=== PATIENT | female | born 1940 | race Caucasian/White ===

== ENCOUNTER 2023-03-09 18:14 | Inpatient (IN) | payer MEDICARE ==
[~2023-03-09] VITALS: Ht 167.6 cm; Wt 61.8 kg
[~2023-03-09 18:14] MED LIST: AMLO5 PO; CIME400 PO; CIPR500 PO; DOCU100 PO; GABA300 PO; IBUP400 PO; LORA1 PO; METCAR500 PO; METO25ER PO; METPRE4DP PO; Norco 10-325 T1 EACH PO; ONDA4 PO; ONDA4ODT MM; OXYACE5T PO; Omeprazole20 M1 PO; PROM25 PO
[2023-03-09 18:37] LABS: BASOPHILS ABSOLUTE AUTO 0.11 K/mm3 (0.00-0.23); BASOPHILS PERCENT AUTO 1 % (0-2); EOSINOPHILS ABSOLUTE AUTO 0.07 K/mm3 (0.00-0.68); EOSINOPHILS PERCENT AUTO 0 % (0-6); Hematocrit 46.6 % (33.0-51.0); Hemoglobin 16.2 g/dL (11.5-16.0); IMMATURE GRAN ABSOLUTE AUTO 0.08 K/mm3 (0.00-0.10); IMMATURE GRAN PERCENT AUTO 1 % (0-1); LYMPHOCYTES ABSOLUTE AUTO 1.19 K/mm3 (0.84-5.20); LYMPHOCYTES PERCENT AUTO 7 % (21-46); MONOCYTES ABSOLUTE AUTO 1.23 K/mm3 (0.16-1.47); MONOCYTES PERCENT AUTO 8 % (4-13); Mean Corpuscular HGB 29.3 pg (26.0-34.0); Mean Corpuscular HGB Conc 34.8 g/dL (31.5-36.5); Mean Corpuscular Volume 84 fL (80-100); Mean Platelet Volume 9.8 fL (9.1-12.4); NEUTROPHILS ABSOLUTE AUTO 13.73 K/mm3 (1.96-9.15); NEUTROPHILS PERCENT AUTO 84 % (41-73); Platelet Count 334 K/mm3 (150-400); RDW Coefficient Variation 13.4 % (11.7-14.2); Red Blood Cell Count 5.52 M/mm3 (3.80-5.20); White Blood Cell Count 16.41 K/mm3 (4.00-11.30)
[2023-03-09 19:09] LABS: Albumin, Blood 3.3 g/dL (3.4-5.0); Albumin/Globulin Ratio 0.7 (0.8-1.8); Bilirubin, Total 0.8 mg/dL (0.1-1.0); Calcium, Blood 12.1 mg/dL (8.5-10.1); Globulin, Blood 4.9 g/dL (2.2-4.0); Potassium, Blood 4.3 mmol/L (3.5-5.5); Total Protein, Blood 8.2 g/dL (6.4-8.2)
[2023-03-09 19:13] LABS: Magnesium, Blood 1.6 mg/dL (1.6-2.4)
[2023-03-09 19:15] LABS: Thyroid Stimulating Hormone 3.08 uIU/mL (0.360-4.800)
[2023-03-09 20:24] LABS: Influenza A, PCR NEGATIVE (NEGATIVE); Influenza B, PCR NEGATIVE (NEGATIVE); Resp Syncytial Virus, PCR NEGATIVE (NEGATIVE); SARS-Cov-2 (COVID-19) PCR, MMC NEGATIVE (NEGATIVE)
[2023-03-10] VITALS (8 sets, daily range): BP systolic 121–157; BP diastolic 62–95
[2023-03-10 05:04] LABS: BASOPHILS ABSOLUTE AUTO 0.13 K/mm3 (0.00-0.23); BASOPHILS PERCENT AUTO 1 % (0-2); Hematocrit 41.3 % (33.0-51.0); Hemoglobin 15.1 g/dL (11.5-16.0); LYMPHOCYTES ABSOLUTE AUTO 1.38 K/mm3 (0.84-5.20); LYMPHOCYTES PERCENT AUTO 9 % (21-46); MONOCYTES ABSOLUTE AUTO 1.14 K/mm3 (0.16-1.47); MONOCYTES PERCENT AUTO 8 % (4-13); Mean Corpuscular HGB 29.9 pg (26.0-34.0); Mean Corpuscular HGB Conc 36.6 g/dL (31.5-36.5); Mean Corpuscular Volume 82 fL (80-100); Mean Platelet Volume 10.2 fL (9.1-12.4); Platelet Count 277 K/mm3 (150-400); RDW Coefficient Variation 13.2 % (11.7-14.2); RDW Standard Deviation 39.1 fL (35.1-46.3); Red Blood Cell Count 5.05 M/mm3 (3.80-5.20); White Blood Cell Count 15.14 K/mm3 (4.00-11.30)
[2023-03-10 05:09] LABS: EOSINOPHILS PERCENT AUTO 0 % (0-6); IMMATURE GRAN ABSOLUTE AUTO 0.08 K/mm3 (0.00-0.10); IMMATURE GRAN PERCENT AUTO 1 % (0-1); NEUTROPHILS ABSOLUTE AUTO 12.41 K/mm3 (1.96-9.15); NEUTROPHILS PERCENT AUTO 82 % (41-73)
[2023-03-10 05:16] LABS: Albumin, Blood 2.6 g/dL (3.4-5.0); Albumin/Globulin Ratio 0.6 (0.8-1.8); Bilirubin, Total 0.6 mg/dL (0.1-1.0); Bun/Creatinine Ratio 21.6 (12.0-20.0); Calcium, Blood 10.9 mg/dL (8.5-10.1); Creatinine, Blood 1.02 mg/dL (0.40-1.00); Globulin, Blood 4.2 g/dL (2.2-4.0); Potassium, Blood 3.7 mmol/L (3.5-5.5); Total Protein, Blood 6.8 g/dL (6.4-8.2)
--- NOTE | 2023-03-10 06:43 | NUR ---
SHIFT SUMMARY: PT ADMITTED LAST NIGHT FROM ED. A&OX4. ABLE TO FOLLOW DIRECTIONS AND MAKE NEEDS KNOWN. DENIES ANY NAUSEA, SOB, OR CHEST PAIN/PRESSURE. HR HAS BEEN A-FIB IN 110'S ON DILT GTT AT 15. PT INITIALLY HAVING SOME URINARY RETENTION BUT IS NOW VOIDING CLEAR, YELLOW URINE WITHOUT DIFFICULTY. PUREWICK IN PLACE FOR COMFORT. 5 LPM VIA NC NEEDED TO KEEP O2 SATS > 92%. NPO FOR POSSIBLE PROCEDURE TODAY WITH SWABS TO KEEP MOUTH WARM. NO ACUTE CHANGES NOTED DURING THIS SHIFT. CALL LIGHT IN REACH. BED ALARM ON.
--- NOTE | 2023-03-10 07:57 | NUR ---
ASSUMED CARE: ASSUMED CARE OF PT APPROX 0715. PT A&OX4. ABLE TO MAKE NEEDS KNOWN. HR 120'S, AFIB. SBP 167. PT DENIES CP/PRESSURE. SPO2 >92% ON 5L VIA NC. PT DENIES SOB. PUREWICK IN PLACE. NPO THIS AM. PT ABLE TO USE SWABS TO MOISTEN MOUTH. NO FURTHER NEEDS AT THIS TIME. CALL LIGHT WITHIN REACH.
--- NOTE | 2023-03-10 11:39 | NUR ---
PT UPDATE: CALL PLACED TO MD LOPEZ. MD LOPEZ NOTIFIED OF PT HR 120-130'S WITH DILT DRIP AT 15 AND INCREASED SOB. NOTIFIED THAT O2 DEMANDS INCREASED FROM 5L TO 7-8L VIA NC. MD LOPEZ STATES SHE WILL LOOK INTO IT. NO FURTHER ORDERS AT THIS TIME.
[2023-03-10 12:50] LABS: CPK Creatine Kinase 92 U/L (26-193)
[2023-03-10 12:58] LABS: International Normalized Ratio 1.18; Prothrombin Time Results 12.3 Sec (9.7-11.5)
--- NOTE | 2023-03-10 16:03 | NUR ---
SHIFT SUMMARY: PT A&OX4, ABLE TO MAKE NEEDS KNOWN. SBP 140-160'S. HR MOSTLY 110-120'S IN AFIB. DILT GTT INFUSING AT 15. PT DENIES CP/PRESSURE. PT TITRATED UP TO 8L O2 VIA NC TO MAINTAIN O2 SATS >92%. PT WITH INCREASED SOB ON 5L O2 AND ELEVATED HR WITH TRANSFER FROM BED TO CHAIR. PT MOVED BACK TO BED WITH NURSE SBA ON 8L O2. HR DECREASED AND TACHYPNEA SUBSIDED ONCE BACK IN BED. PT REMAINED ON 8L O2, MD LOPEZ NOTIFIED. HEPARIN STARTED INFUSING AT 18.6 PER EMAR. PUREWICK IN PLACE DRAINING CLEAR YELLOW URINE. NO BM'S THIS SHIFT. [address]CTION IN PL[address]. ABLE TO EAT AND DRINK INDEPENDENTLY. FREQUENTLY REPOSITIONED THROUGHOUT SHIFT. CALL LIGHT WITHIN REACH. NO FURTHER NEEDS AT THIS TIME.
[2023-03-10] MEDS ORDERED: HYDHCL25 PO (17:28)
[2023-03-10] MEDS ORDERED: VENL75ER PO (17:29)
[2023-03-11] VITALS (7 sets, daily range): BP systolic 120–154; BP diastolic 61–105
[2023-03-11 02:41] LABS: Hematocrit 38.4 % (33.0-51.0); Hemoglobin 13.4 g/dL (11.5-16.0); Mean Corpuscular HGB 29.3 pg (26.0-34.0); Mean Corpuscular HGB Conc 34.9 g/dL (31.5-36.5); Mean Corpuscular Volume 84 fL (80-100); Platelet Count 304 K/mm3 (150-400); RDW Coefficient Variation 13.2 % (11.7-14.2); RDW Standard Deviation 40.7 fL (35.1-46.3); Red Blood Cell Count 4.58 M/mm3 (3.80-5.20); White Blood Cell Count 15.23 K/mm3 (4.00-11.30)
[2023-03-11 03:09] LABS: BAND PERCENT MAN 9 % (0-8); BASOPHILS PERCENT MAN 0 % (0-2); EOSINOPHILS PERCENT MAN 0 % (0-6); LYMPHOCYTES PERCENT MAN 4 % (21-46); MONOCYTES ABSOLUTE MAN 1.52 K/mm3 (0.16-1.47); MONOCYTES PERCENT MAN 10 % (4-13); MYELOCYTE ABSOLUTE MAN 0.15 K/mm3 (0.00-0.00); MYELOCYTE PERCENT MAN 1 % (0-0); NEUTROPHILS ABSOLUTE MAN 12.94 K/mm3 (1.96-9.15); SEG NEUTROPHILS PERCENT MAN 76 % (41-73); TOTAL CELLS COUNTED 100
[2023-03-11 03:18] LABS: Albumin, Blood 2.4 g/dL (3.4-5.0); Albumin/Globulin Ratio 0.6 (0.8-1.8); Bilirubin, Total 0.3 mg/dL (0.1-1.0); Bun/Creatinine Ratio 27.5 (12.0-20.0); Calcium, Blood 10.7 mg/dL (8.5-10.1); Creatinine, Blood 1.09 mg/dL (0.40-1.00); Globulin, Blood 4.1 g/dL (2.2-4.0); Potassium, Blood 3.9 mmol/L (3.5-5.5); Total Protein, Blood 6.5 g/dL (6.4-8.2)
--- NOTE | 2023-03-11 04:45 | NUR ---
CARDIZEM GTT OFF SINCE LAST PM AT 2237, HEPARIN GTT AT 18 UNITS, AFIB 70'S TO 90'S, GOOD UO, VSS, PT C/O INSOMNIA, MELATONIN 5MG ORDERED BUT PT STILL RESTLESS AND HAVING DIFFICULTY FALLING BACK TO SLEEP AFTER BEING DISTURBED, DECLINED TYLENOL, REPOSITIONING OR FURTHER MEDICINAL INTERVENTIONS
--- NOTE | 2023-03-11 07:41 | NUR ---
ASSUMPTION OF CARE: ASSUMED CARE OF PT APPROX 0700. PT A&OX4. TALKATIVE IN BED, LISTENING TO MUSIC. HR 110'S, SBP 140. PT DENIES CP/PRESSURE. SPO2 >95% ON 7L O2 VIA NC. PT DENIES SOB. RESPIRATIONS EVEN AND UNLABORED. AFEBRILE. PT RECEIVED BED BATH THIS AM. HEPARIN CURRENTLY INFUSING AT 18 ML/HR PER EMAR. PUREWICK IN PLACE DRAINING YELLOW URINE. [address]CTION IN PLACE. CALL LIGHT WITHIN REACH. NO FURTHER NEEDS AT THIS TIME.
--- NOTE | 2023-03-11 14:40 | NUR ---
PT UPDATE: SPOKE WITH RT MARS. MARS ADVISED THIS SN THAT PT HAD WHEEZES IN THE BILATERAL LUNGS DURING HER EVALUATION. MARS RECOMMENDED DISCUSSING THE INITIATION OF STEROIDS WITH MD. SPOKE WITH MD OZUNA. INFORMED OBI OF PT'S WHEEZES AND RT RECOMMENDATION OF STEROID TREATMENT. OBI STATES THAT SHE WILL PLACE ORDERS FOR ORAL STEROIDS.
--- NOTE | 2023-03-11 17:24 | NUR ---
SHIFT SUMMARY: PT A&OX4 AND EMOTIONAL THIS SHIFT. HR MOISTLY 80-110'S WITH SOME INCREASES TO 130'S. AFIB RHYTHM. SBP 140-150'S. PT DENIES CP/PRESSURE. O2 TITRATED DOWN FROM 7L TO 4L THIS PM. SPO2 >90% ON 4L VIA NC. AFEBRILE. HEPARIN CURRENTLY INFUSING AT 24.8 ML/HR. PUREWICK IN PLACE. [address] IN [address]. MINIMAL FOOD INTAKE THIS SHIFT. PT ABLE TO TRANSFER FROM BED TO CHAIR MULTIPLE TIMES THIS SHIFT WITH SBA. UP TO BSC THIS PM. 1 SMALL BM. ECHO COMPLETED THIS AM. PT TEARFUL AND STATED THAT SHE WAS "WORKED UP" AT TIMES. PT EXPRESSED FRUSTRATION ABOUT HER COMFORT IN BED, RELIEVED WITH MOVE TO RECLINER. PT DECLINED DINNER TRAY, RESTING IN BED CURRENTLY. CALL LIGHT WITHIN REACH. NO FURTHER NEEDS AT THIS TIME.
[2023-03-12] VITALS (11 sets, daily range): BP systolic 118–159; BP diastolic 77–129
[2023-03-12 01:22] LABS: BASOPHILS ABSOLUTE AUTO 0.05 K/mm3 (0.00-0.23); BASOPHILS PERCENT AUTO 0 % (0-2); EOSINOPHILS ABSOLUTE AUTO 0.04 K/mm3 (0.00-0.68); EOSINOPHILS PERCENT AUTO 0 % (0-6); Hemoglobin 14.8 g/dL (11.5-16.0); IMMATURE GRAN ABSOLUTE AUTO 0.17 K/mm3 (0.00-0.10); IMMATURE GRAN PERCENT AUTO 1 % (0-1); LYMPHOCYTES ABSOLUTE AUTO 1.23 K/mm3 (0.84-5.20); LYMPHOCYTES PERCENT AUTO 10 % (21-46); MONOCYTES ABSOLUTE AUTO 0.23 K/mm3 (0.16-1.47); MONOCYTES PERCENT AUTO 2 % (4-13); Mean Corpuscular HGB 29.5 pg (26.0-34.0); Mean Corpuscular HGB Conc 35.2 g/dL (31.5-36.5); Mean Corpuscular Volume 84 fL (80-100); Mean Platelet Volume 9.8 fL (9.1-12.4); NEUTROPHILS ABSOLUTE AUTO 10.77 K/mm3 (1.96-9.15); NEUTROPHILS PERCENT AUTO 86 % (41-73); Platelet Count 320 K/mm3 (150-400); RDW Coefficient Variation 13.4 % (11.7-14.2); RDW Standard Deviation 41.5 fL (35.1-46.3); Red Blood Cell Count 5.01 M/mm3 (3.80-5.20); White Blood Cell Count 12.49 K/mm3 (4.00-11.30)
[2023-03-12 01:38] LABS: Calcium, Blood 10.7 mg/dL (8.5-10.1); Creatinine, Blood 0.97 mg/dL (0.40-1.00); Potassium, Blood 3.6 mmol/L (3.5-5.5)
--- NOTE | 2023-03-12 07:16 | NUR ---
SHIFT SUMMARY MENTATION/MOOD HAS WAXED AND WANED T/O THE NIGHT. AT ONE MOMENT, PT IS PLEASANT, COOPERATIVE AND A/Ox3. OTHER TIMES THE PT BECOMES INCREASINGLY CONFUSED/IRRATIBLE YELLING AT STAFF MEMBERS TO "GET OUT OF MY HOUSE!". FURTHER MORE PT WOUND HAVE EPISODES OF ANXIETY AND WOULD BREAKDOWN CRYING. CARDIAC DUNN, PT HAS REMAINED IN AFIB RANGING 90-120'S T/O THE NIGHT W/O ANY C/O OF DIZZYNESS OR PALPITATIONS. RESPIRATORY DUNN, PT MAINTAINED SPO2 >92% ON 4L VIA NC. INCREASED RR AND SOME SOB NOTED WITH EXERTION. ABLE TO ABULATE WITH SBA TO BSC TO VOID. BOUTS ON INCONTINENCE DURING THE NIGHT. WICKING SYSTEM IN PLACE AND REPLACED NEEDED. HEPARIN INFUSING ORDERED VIA EMAR. NO NEW ORDERS AT THIS TIME, WILL REPORT TO ONCOMING RN.
--- NOTE | 2023-03-12 12:20 | NUR ---
HEPARIN RESTART: HEPARIN HAS BEEN RESTARTED PER ORDERS. VERIFIED WITH NGOC Mcneil RN.
--- NOTE | 2023-03-12 18:53 | NUR ---
SHIFT SUMMARY: PT HAS BEEN A&Ox3-4, COOPERATIVE W/CARE, ABLE TO MAKE NEEDS KNOWN. O2 SATS >92% ON 3 L/MIN, DENIES INCREASED SOB. AFIB CONTINUES ON MONITOR. PT HR TRENDED UP PARTWAY T/OUT THE DAY, RATE 130s, PROVIDER NOTIFIED W/NEW ORDERS PLACED. CARDIZEM INFUSING AT 15 MG/HR, HR CURRENTLY 100-110s. PT C/O CHRONIC BACK PAIN, NEW ORDERS OBTAINED AND PT MEDICATED PER ORDERS. PT ABLE TO STAND AND TRANSFER TO BSC BUT IS INCONTINENT AT TIMES. PUREWICK CONTINUES IN PLACE TO SUCTION, ATTENDS CHECKED FREQUENTLY AND CHANGED PRN. REPORT GIVEN TO LELIA OCONNOR TO ASSUME CARE OF PT.
[2023-03-13] VITALS (8 sets, daily range): BP systolic 112–156; BP diastolic 65–120
--- NOTE | 2023-03-13 05:44 | NUR ---
SHIFT SUMMARY MOOD CONTINUES TO BE LABILE WITH PT MENTATION RANGING FROM A/Ox3-4 TO BEING EXTREMELY CONFUSED WELL IRRATIBLE. DURING EPISODES OF CONFUSION, PT WOULD THINK SHE IS BACK HOME OR THAT SHE WOUND ATTEMPT TO VOID IN THE CORNER OF THE ROOM OR RECLINER. PT IS VERY DIFFICULT TO REDIRECT DURING THESE EPISODES. CARDIAC DUNN, PT REMAINS IN AFIB WITH A RATE RANGING IN THE 90'S WHILE ON CARDIZEM GTT @5MG/HR. WHEN PT MOVES OR WALK HOWEVER, HER HR INCREASES INTO THE 140'S. NO C/O CP OR PRESSURE T/O THE SHIFT. MAINTAINS SPO2 >90% ON 4-5L VIA NC. INCREASED RR NOTED WITH EXERTION A WELL SOB DURING EPISODES OF CONFUSION. ABLE TO ABULATE TO BSC WITH MINIMAL ASSISTANCE FROM STAFF. PUREWICK IN PLACE AND CONNECTED TO CONTINUIOUS SUCTION. CHRONIC BACK PAIN MANAGED WELL WITH PRN NORCOS. NO NEW ORDERS AT THIS TIME, WILL REPORT TO ONCOMING RN.
--- NOTE | 2023-03-13 10:28 | NUR ---
AM NOTE: ASSUMED CARE OF PT AT APPROX 0730 AFTER RECEIVING REPORT FROM LELIA OCONNOR. PT IS ALERT, ORIENTED x3, ABLE TO MAKE NEEDS KNOWN, EXPRESSES FRUSTRATION RE: HAVING TO WAIT FOR STAFF TO BE IN ROOM WHEN SHE TRANSFERS SELF TO/FROM BED. SAFETY MEASURES REINFORCED, PT COOPERATIVE W/CARE SO FAR THIS SHIFT. O2 SATS >92% ON 4 L/MIN NC. AFIB CONTINUES ON MONITOR, RATE RANGING MID 80s-LOW 100s WHILE AT REST, CARDIZEM INFUSING AT 5 MG/HR. ATTENDS IN PLACE, CHECKED AND CHANGED PRN. WILL CONTINUE TO MONITOR AND TREAT ACCORDINGLY UNTIL CHANGE OF SHIFT.
--- NOTE | 2023-03-13 12:19 | NUR ---
UPDATE: PT TRANSITIONED TO CARDIZEM PO, INFUSION TURNED OFF AT THIS TIME. PT's DAUGHTER, CARSON, HAS BEEN UPDATED ON STATUS AND PLAN OF CARE VIA TELEPHONE.
--- NOTE | 2023-03-13 14:38 | NUR ---
TRANSFER OF CARE: NO CHANGES TO PT STATUS SINCE LAST NOTE. REPORT HAS BEEN GIVEN TO LELIA PRITCHARD TO ASSUME CARE OF PT.
--- NOTE | 2023-03-13 15:09 | NUR ---
ASSUMED CARE OF PT FROM LELIA PUENTE, AT THIS TIME.
--- NOTE | 2023-03-13 18:44 | NUR ---
NO CHANGE IN STATUS SINCE ASSUMING CARE THIS AFTERNOON. WILL CONTINUE TO MONITOR AND GIVE REPORT TO NOC SHIFT RN.
[2023-03-14 00:01] VITALS: BP 147/83
[2023-03-14 04:07] VITALS: BP 149/101
--- NOTE | 2023-03-14 05:58 | NUR ---
SHIFT SUMMARY A/Ox3-4 AND MOSTLY COOPERATIVE WITH CARE PROVIDED BY MEMBERS OF STAFF. ANSWERS QUESTIONS APPROPRIATELY AND ABLE TO MAKE HER NEEDS KNOWN. CONTINUES TO HAVE EPISODES OF CONFUSION WHERE PT THINKS SHE IS BACK AT HOME. DURING THESE EPISODES, PT CAN BECOME EASILY AGITATED WITH STAFF. CARDIAC DUNN, REMAINS IN AFIB RHYTHM WITH A RATE IN THE 90-100'S WHEN RELAXED. HR JUMPS TO THE 140-150'S WITH ABULATION, PT DOES NOT REPORT ANY CP OR DIZZINESS DURING THESE EVENTS. CARDIZEM GTT WAS DC'd DURING DAYSHIFT YESTERDAY IN FAVOR OF PO CARDIZEM. BP'S HAVE BEEN STABLE. RESPIRATORY DUNN, PT MAINTAINS SPO2 >90% ON 3L VIA NC WITH NO C/O SOB OR DYSPNEA REPORTED. ABLE TO ABULATE TO BSC TO VOID. NO NEW ORDERS AT THIS TIME, WILL REPORT TO ONCOMING RN. SARABJIT HUA AT THE TIME OF THIS NOTE.
[2023-03-14 08:21] VITALS: BP 139/97
[2023-03-14 09:11] LABS: BASOPHILS ABSOLUTE AUTO 0.06 K/mm3 (0.00-0.23); BASOPHILS PERCENT AUTO 0 % (0-2); EOSINOPHILS PERCENT AUTO 0 % (0-6); Hematocrit 41.9 % (33.0-51.0); Hemoglobin 14.7 g/dL (11.5-16.0); IMMATURE GRAN ABSOLUTE AUTO 0.57 K/mm3 (0.00-0.10); IMMATURE GRAN PERCENT AUTO 4 % (0-1); LYMPHOCYTES ABSOLUTE AUTO 1.28 K/mm3 (0.84-5.20); LYMPHOCYTES PERCENT AUTO 9 % (21-46); MONOCYTES ABSOLUTE AUTO 1.17 K/mm3 (0.16-1.47); MONOCYTES PERCENT AUTO 8 % (4-13); Mean Corpuscular HGB 29.5 pg (26.0-34.0); Mean Corpuscular HGB Conc 35.1 g/dL (31.5-36.5); Mean Corpuscular Volume 84 fL (80-100); Mean Platelet Volume 9.4 fL (9.1-12.4); NEUTROPHILS ABSOLUTE AUTO 10.83 K/mm3 (1.96-9.15); NEUTROPHILS PERCENT AUTO 78 % (41-73); Platelet Count 433 K/mm3 (150-400); RDW Coefficient Variation 13.4 % (11.7-14.2); RDW Standard Deviation 41.5 fL (35.1-46.3); Red Blood Cell Count 4.99 M/mm3 (3.80-5.20); White Blood Cell Count 13.91 K/mm3 (4.00-11.30)
[2023-03-14 11:00] LABS: Calcium, Blood 11.2 mg/dL (8.5-10.1); Potassium, Blood 3.7 mmol/L (3.5-5.5)
[2023-03-14 11:22] VITALS: BP 138/85
--- NOTE | 2023-03-14 12:01 | NUR ---
Pt is c/o back pain. States that she does not have back pain at home becuase her activity prevents it from getting bad. She asserts angrily that she does not want to get out of bed, does not want to sit in the chair. Says that the doctor ordered Loda for her while she is in the hospital and she wants it to relieve her back pain so that she can sleep. Confirmed with Dr. Dick that current Loda order for 5325 prn q6h is fine.
--- NOTE | 2023-03-14 12:24 | NUR ---
Pt requested to have a purewick for voiding "so that I don't have to get up out of bed". Explained that we would encourage activity and she commented angrily that no one had told her she could get up and move around. Attempted to wean the patient off of oxygen; she is now on 2 l/min at rest. She got up out of bed and walked to the bathroom using the walker, unassisted without any noted difficulty. She was able to walk back to the bed, also without noted difficulty. Mild dyspnea noted with spo2 85% on room air during the activity. Oxygen was replaced. Oxygen 2 l/min while resting in bed, napping spo2 is 89-90%, RR 16/minute.
--- NOTE | 2023-03-14 16:04 | NUR ---
Pt is napping, it appears. Respirations are even and unlabored. SpO2 92% on 2 l/min O2 delivery.
[2023-03-14 17:50] VITALS: BP 152/78
--- NOTE | 2023-03-14 17:55 | NUR ---
Pt sitting up in the chair for dinner. States she will sit up a little longer, to help her back. Appetite is fair, but not really good. Denies nausea.
[2023-03-14 20:44] VITALS: BP 148/97
[2023-03-15 00:52] VITALS: BP 158/104
--- NOTE | 2023-03-15 02:32 | NUR ---
END OF SHIFT: PATIENT HAS HAD NO CHANGE FROM ASSUMPTION OF CARE. A/O X 4, BEEN COOPERATIVE WITH CARE HAS BEEN AMBULATING TO [facility], DENIES NEED DESPITE EDUCATION. DENIES CHEST PAIN PRESSURE OR SOB. DID INCREASE 1L OF OXYGEN WHILE SLEEPING ABLE TO RECOVER BETTER AFTER MOVEMENT SPO2>91%. PATIENT HAS BEEN MEDICATED PER PAIN X 1 PER EMAR. PATIENT WAS REPOSITIONED Q3 FOR STARTING COCCYX WOUND, NOTED AND COVERED BY MEPILEX BY DAY. SHE HAS BEEN SLIGHTLY HYPERTENSIVE, WILL CONTINUE TO MONITOR UNTIL SHIFT CHANGE.
[2023-03-15 05:02] VITALS: BP 176/103
--- NOTE | 2023-03-15 06:25 | NUR ---
INCREASED HR SOB APPORXIAMTELY AROUND 5 PATIETN BECAME INCREASINGLY DYSPNIC AT REST, REQUIRING A TOTAL OF 6L TO BE TURNED UP TO MAINTAIN SATURATION, PATIENT AT THIS TIME DID RECIEVE HYDRALAZINE 10MG IN ORDER TO BRING HER BLOOD PRESSURE FROM 170'S TO WHICH IT DROPPED TO THE 130'S. PATIETN HEART RATE WITHOUT ANXIETY IS <110. HOWEVER, AROUND 0615 PATIENT HAD TO BE TURNED UP TO 11L ORDER FOR ATIVAN OBTAINED VIA NIGHT HOSPITALIST. PATIENT AGREEABLE DECREASED STIMULUS SPO2 MONITORING AND TELE ARE STILL IN PLACE, PATIENT TO WORK ON DEEP BREATHING AND MEDITATION. PATIENT THANKFUL, ALSO ATARAX AND ZOFRAN WERE NEEDED AT 0500 WITHOUT IMPROVEMENT OF AXIETY AND NAUSEA IS NOW SUBSIDED.
[2023-03-15 07:37] VITALS: BP 132/91
--- NOTE | 2023-03-15 07:50 | NUR ---
PT SITTING IN CHAIR. APPEARS DROWSY BUT WANTS TO STAY IN THE CHAIR UNTIL BREAKFAST.
[2023-03-15 11:41] LABS: BASOPHILS ABSOLUTE AUTO 0.05 K/mm3 (0.00-0.23); BASOPHILS PERCENT AUTO 0 % (0-2); EOSINOPHILS PERCENT AUTO 0 % (0-6); Hematocrit 44.5 % (33.0-51.0); Hemoglobin 15.6 g/dL (11.5-16.0); IMMATURE GRAN ABSOLUTE AUTO 0.39 K/mm3 (0.00-0.10); IMMATURE GRAN PERCENT AUTO 2 % (0-1); LYMPHOCYTES ABSOLUTE AUTO 1.34 K/mm3 (0.84-5.20); LYMPHOCYTES PERCENT AUTO 8 % (21-46); MONOCYTES ABSOLUTE AUTO 1.23 K/mm3 (0.16-1.47); MONOCYTES PERCENT AUTO 7 % (4-13); Mean Corpuscular HGB 29.3 pg (26.0-34.0); Mean Corpuscular HGB Conc 35.1 g/dL (31.5-36.5); Mean Corpuscular Volume 84 fL (80-100); Mean Platelet Volume 9.6 fL (9.1-12.4); NEUTROPHILS ABSOLUTE AUTO 13.52 K/mm3 (1.96-9.15); NEUTROPHILS PERCENT AUTO 82 % (41-73); NRBC ABSOLUTE 0.02 K/mm3 (0.00-0.02); NRBC Auto 0.1 /100 WBC (0.0-0.2); Platelet Count 464 K/mm3 (150-400); RDW Coefficient Variation 13.2 % (11.7-14.2); RDW Standard Deviation 40.3 fL (35.1-46.3); Red Blood Cell Count 5.32 M/mm3 (3.80-5.20); White Blood Cell Count 16.53 K/mm3 (4.00-11.30)
[2023-03-15 11:59] LABS: Albumin, Blood 3.1 g/dL (3.4-5.0); Albumin/Globulin Ratio 0.8 (0.8-1.8); Bilirubin, Total 0.3 mg/dL (0.1-1.0); Bun/Creatinine Ratio 50.2 (12.0-20.0); Calcium, Blood 11.4 mg/dL (8.5-10.1); Creatinine, Blood 0.96 mg/dL (0.40-1.00); Globulin, Blood 3.8 g/dL (2.2-4.0); Potassium, Blood 3.6 mmol/L (3.5-5.5); Total Protein, Blood 6.9 g/dL (6.4-8.2)
[2023-03-15 12:21] VITALS: BP 152/92
--- NOTE | 2023-03-15 12:55 | NUR ---
Pt calling out, did not use the call light adjacent to her on the bed to request help to the bathroom. Walker used by the patient to ambulate from sitting on side of bed to toilet in bathroom to void. She needed to void urgently. Pt recently received IV furosemide. Appeared to tolerated the activity without dyspnea, but heart rate did increase to 144 during the activity. Wearing oxygen at 5 l/min throughout the activity.
--- NOTE | 2023-03-15 15:43 | NUR ---
PT ARRIVE TO ROOM AOX3 VIA WHEELCHAIR. REPORT WAS RECIEVED PRIOR. NO DISTRESS NOTED AND BED ALARM IN PLACE WITH CONTINUE TO MONITOR.
[2023-03-15 17:22] VITALS: BP 152/101
--- NOTE | 2023-03-15 18:26 | NUR ---
NO ACUTE CHANGES. PT RESTING IN BED AT THIS TIME CALL LIGHT WITHIN REACH. PT DID ATTEMPT TO GET OUT OF BED TWICE. WILL CONTINUE TO MONITOR, BED ALARM IN PLACE.
[2023-03-15] MEDS ORDERED: GABAPENTIN600 MG PO (18:56)
[2023-03-15 19:39] VITALS: BP 151/99
[2023-03-16] VITALS (8 sets, daily range): BP systolic 120–172; BP diastolic 74–101
--- NOTE | 2023-03-16 06:37 | NUR ---
CONTINUOUS TELE MONITORING, A FIB IN 100'S-110'S. SLEPT MUCH OF SHIFT. ANXIOUS IN THE MORNING, ATARAX EFFECTIVE. COOPERATIVE WITH FLUID RESTRICTION. NORCO 1 TAB GIVEN X 2 DURING SHIFT FOR BACK PAIN. SBA TO BSC LAST NIGHT. AO, PLEASANT, VSS, CALLS APPROPRIATELY.
--- NOTE | 2023-03-16 18:46 | NUR ---
SHIFT SUMMARY: PATIENT A&OX4. PATIENT DECLINE TO PARTICIPATE c PT MOBILITY THIS AM. PATIENT IS REQUESTING TO BE DISCHARGE. THIS RN SPOKE TO DR. BONDS REGARDING PATIENT REQUEST. DR. BONDS SPOKE c PATIENT DURING ROUNDING THIS AM. PATIENT WAS NOT HAPPY WITH THE OUTCOME TO STAY ONE MORE NIGHT. PER PATIENT "I WILL AGREE ONE MORE NIGHT, BUT TOMORROW I WILL GO HOME WITH OR WITHOUT DR'S APPROVAL. I AM TIRED OF BEING HERE IN THE HOSPITAL." PATIENT ON 5L OF O2 BEGINNING OF SHIFT AND TITRATED TO 4L c SPO2 RANGES 90-94%. HOME O2 EVAL WAS ORDERED. RT DID AN EVAL THIS PM. PATIENT REPORTS DIZZINESS WHEN STANDING UP. VITALS SIGNS WAS OBTAINED WHEN THIS HAPPENED. VITAL SIGNS WNL AND NEGATIVE FOR ORTHOSTATIC HYPOTENSION. DR. BONDS IS AWARE OF THIS ISSUE. PATIENT REFUSED TO AMBULATES TO BATHROOM. PATIENT LAYING IN BED ALL DAY AND USES BSC c SBA T/O SHIFT. REPORTS BACK PAIN. PAIN MEDICATED PER EMAR ORDER c GOOF RELIEF. VITAL SIGNS REVIEWED. CALL LIGHT IN REACH
[2023-03-17 04:57] VITALS: BP 150/80
[2023-03-17 05:35] LABS: BASOPHILS ABSOLUTE AUTO 0.03 K/mm3 (0.00-0.23); BASOPHILS PERCENT AUTO 0 % (0-2); EOSINOPHILS ABSOLUTE AUTO 0.01 K/mm3 (0.00-0.68); EOSINOPHILS PERCENT AUTO 0 % (0-6); Hematocrit 46.5 % (33.0-51.0); Hemoglobin 15.9 g/dL (11.5-16.0); IMMATURE GRAN ABSOLUTE AUTO 0.21 K/mm3 (0.00-0.10); IMMATURE GRAN PERCENT AUTO 1 % (0-1); LYMPHOCYTES ABSOLUTE AUTO 1.97 K/mm3 (0.84-5.20); LYMPHOCYTES PERCENT AUTO 14 % (21-46); MONOCYTES ABSOLUTE AUTO 0.95 K/mm3 (0.16-1.47); MONOCYTES PERCENT AUTO 7 % (4-13); Mean Corpuscular HGB 29.3 pg (26.0-34.0); Mean Corpuscular HGB Conc 34.2 g/dL (31.5-36.5); Mean Corpuscular Volume 86 fL (80-100); Mean Platelet Volume 9.9 fL (9.1-12.4); NEUTROPHILS ABSOLUTE AUTO 11.34 K/mm3 (1.96-9.15); NEUTROPHILS PERCENT AUTO 78 % (41-73); Platelet Count 406 K/mm3 (150-400); RDW Coefficient Variation 13.2 % (11.7-14.2); RDW Standard Deviation 41.2 fL (35.1-46.3); Red Blood Cell Count 5.43 M/mm3 (3.80-5.20); White Blood Cell Count 14.51 K/mm3 (4.00-11.30)
--- NOTE | 2023-03-17 06:10 | NUR ---
SHIFT SUMMARY: PT AROUSES EASILY AND RESPONDS APPROPRIATELY. SHE HAS RESTED QUIETLY FOR THE MAJORITY OF THE SHIFT. SHE REPORTS MODERATE PAIN CONTROL WITH NORCO 5/325 MG. SHE IS A STANDBY ASSIST TO THE BEDSIDE COMMODE. LUNGS COARSE IN THE BASES. POWERGLIDE TO MARIANO PATENT, PT DID REPORT PAIN IN HER LEFT ARM DURING ADMINISTRATION OF ROCEPHIN WHICH SHE STATED SUBSIDED SHORTLY AFTER ADMINISTRATION ENDED. PT IS MATINAINTING O2 SATS ON 4 L VIA NC. SHE INITIALLY HAD DIFFICULTY SWALLOWING THE PROBIOTIC, AND COUGHED HEAVILY AND STATED THAT SHE ALMOST CHOKED ON IT. HOWEVER, SHE WAS ABLE TO SWALLOW HER PILLS WITHOUT DIFFICULTY AFTER THE COUGHING SUBSIDED. PT REFUSED BREATHING TREATMENT FROM RT. PT IS LYING QUIETLY IN BED WITH THE CALL LIGHT IN REACH. WCTM UNTIL REPORT IS GIVEN TO DAY SHIFT RN.
[2023-03-17 06:22] LABS: Calcium, Blood 10.6 mg/dL (8.5-10.1); Potassium, Blood 3.6 mmol/L (3.5-5.5)
[2023-03-17 07:32] VITALS: BP 148/93
[2023-03-17 15:49] VITALS: BP 125/81
--- NOTE | 2023-03-17 17:08 | NUR ---
SHIFT SUMMARY: NO NEW CHANGES IN PATIENT CONDITION. PATIENT AGREED TO STAY TODAY. PATIENT STILL NEEDING O2, AT REST 4L VIA NC c SPO2 SUSTAINING 92-94%. PATIENT WAS ASSISTED WITH AMBULATION AND MADE ABOUT THREE STEPS O2 DROPPED TO MID 80'S AND WAS PLACED ON 5L NC c SPO2 RANGES 89-91%. PATIENT REPORTS BEING "WEAK AND CANNOT GO MORE THAN THREE STEPS." PATIENT WAS ASSISTED BACK IN BED. THIS RN ENCOURAGE PATIENT TO AMBULATES TO BATHROOM INSTEAD OF BSC c ASSISTANCE. PATIENT DECLINE, STATED "I'M DONE FOR THE DAY AND I JUST NEED TO STAY IN BED." PT/OT ORDERED. PATIENT REPORTS PAIN 6-8/10 TO BACK. MEDICATED c NORCO c GOOD RELIEF. PATIENT RESTING IN BED T/O SHIFT. RECEIVED SCHEDULED MEDS PER EMAR. VITAL SIGNS REVIEWED. POWERGLIDE TO MARIANO SALINE LOCKED. CALL LIGHT IN REACH.
[2023-03-17 19:25] VITALS: BP 132/77
[2023-03-18 02:12] VITALS: BP 119/78
--- NOTE | 2023-03-18 04:09 | NUR ---
SHIFT SUMMARY 82 YR F ADMITTED ON 03/09/23 FOR PNEUMONIA AND AFIB/RVR. FULL CODE. PT IS STILL STRUGGLING WITH KEEPING HER O2 SATS WITHIN NORMAL RANGE. AT APPROX 0200 HER O2 SATS DROPPED TO THE 80'S WHILE SHE WAS LYING IN BED WITH NO ACTIVITY. O2 WAS BUMPED UP TO 6L AND SATS DID NOT REACH THE 90'S. RT WAS CALLED AND PT AGREED TO A BREATHING TX. RT STATED THAT PT'S LUNGS WERE CLEAR WITH ONLY SLIGHTLY DIMINISHED SOUNDS IN THE BASES. PT WAS VERY GRUMPY THIS SHIFT AND WAS CUSSING AT THE RN AND STATING THAT SHE WAS NOT GIVEN HER MEDS, WHEN IN FACT SHE WAS. SHE TOLD THE RN TO APOLOGIZE TO HER.
[2023-03-18 07:38] VITALS: BP 144/77
[2023-03-18] MEDS ORDERED: METO50 PO (11:57)
[2023-03-18] MEDS ORDERED: ELIQUIS5 M2 PO (11:59)
[2023-03-18] MEDS ORDERED: DILTIAZEM 24HR240 M4 PO (12:00)
[2023-03-18] MEDS ORDERED: FURO20 PO (12:02)
[2023-03-18] MEDS ORDERED: Norco 5-325 Ta1 EACH PO (12:03)
[2023-03-18] MEDS ORDERED: IPRAT-ALBUT 0.5-3 ML INH (12:05)
[2023-03-18] MEDS ORDERED: ALBU90OI INH (12:07)
[2023-03-18] MEDS ORDERED: POTA10T PO (12:07)
--- NOTE | 2023-03-18 16:09 | NUR ---
NOTES/DISCHARGE SUMMARY: NO NEW CHANGES IN PATIENT CONDITION THIS SHIFT. A&OX3-4. MOOD WAXED AND WEAN T/O THE DAY, BUT FOR THE MOST PART PLEASANT AND COOPERATIVE c CARE. PATIENT STILL ON O2 4L VIA NC AT REST c SPO2 90-94%, BUT c ACTIVIITES 5L c SPO2 89-92%. PATIENT ABLE TO GET OOB AND MADE ABOUT 4 STEPS TODAY. USES BSC c SBA. PATIENT REPORTS BEING ANXIOUS TO GO HOME AND REQUESTING SOMETHIG FOR ANXIETY. MEDICATED X1 c ATARAX c GOOD RELIEF. PATIENT REPORTS PAIN 6-05/07. RECEIVED X1 NORCO AND X1 c TYLENOL THIS SHIFT c GREAT RELIEF. VITAL SIGNS REVIEWED. RECEIVED SCHEDULED MEDS PER EMAR. POWERGLIDE TO MARIANO MIRANDA. [employer] [facility] DELIVERED PORTABLE O2 IN ROOM THIS AM. PATIENT DISCHARGE HOME. DISCHARGE INSTRUCTION PACKET GIVEN TO PATIENT. EDUCATE PATIENT AND DAUGHTER REGARDING ADMITTING DX, S/S, TX, O2 MANAGEMENT AT HOME, AND NEW PRESCRIBED MEDS. PATIENT AND DAUGHTER STATED UNDERSTANDING AND NO FURTHER QUESTIONS. RX WAS FAXED TO PATIENT PREFERRED PHARMACY ([facility]) O2 CONCENTRATOR, BSC AND FWW SET-UP TO BE DELIVERED TO PATIENT DAUGHTER'S [facility] AT AROUND 1630'S BY [facility]. ALL PATIENT PERSONAL BELONGINGS WERE SENT HOME c THE PATIENT. PATIENT LEFT THE ROOM AT AROUND 1555. PATIENT WAS TRANSPORTED VIA WHEELCHAIR BY [employer]INE[employer] STAFF, LEONIDES RUBIO TO PATIENT DAUGHTER PRIVATE VEHICLE.
== END 2023-03-18 16:00 | disposition home health service (06) | DRG 871 ==
LOC: ER 18:14 → PCU 22:40 → MEDS 03-15 15:36 → ENPENDDIS 03-18 11:24 → MEDS 03-18 16:00
PROVIDERS: Family Medicine; Internal Medicine; Student in an Organized Health Care Education/Training Program; ADMIT Internal Medicine
DX: A41.9 Sepsis, unspecified organism (principal); I50.31 Acute diastolic (congestive) heart failure; J18.9 Pneumonia, unspecified organism; J96.01 Acute respiratory failure with hypoxia; B02.29 Other postherpetic nervous system involvement; E87.20 Acidosis, unspecified; J44.0 Chronic obstructive pulmonary disease with (acute) lower respiratory infection; Z20.822 Contact with and (suspected) exposure to COVID-19; E83.52 Hypercalcemia; I11.0 Hypertensive heart disease with heart failure; K59.00 Constipation, unspecified; I48.91 Unspecified atrial fibrillation; R65.20 Severe sepsis without septic shock; K21.9 Gastro-esophageal reflux disease without esophagitis; G62.9 Polyneuropathy, unspecified; F17.210 Nicotine dependence, cigarettes, uncomplicated; Z88.2 Allergy status to sulfonamides; Z88.6 Allergy status to analgesic agent; Z79.2 Long term (current) use of antibiotics; Z79.899 Other long term (current) drug therapy
CPT/HCPCS: 0241U; 36415; 36416; 71045; 80048; 80053; 82330; 82550; 82947; 83605; 83735; 83880; 83970; 84100; 84145; 84443; 84484; 85025; 85610; 85730; 87040; 93005; 93010; 93306; 94640; 94664; 94760; 94761; 94762; 96361; 96365; 96366; 96368; 96375; 96376; 97110; 97116; 97162; 97165; 97530; 99285-25; A9270; J0360; J0456; J0696; J1644; J1650; J1940; J2060; J2405; J2930; J3475; J7030; J7050